=== PATIENT | female | born 1935 | race Caucasian/White ===

== ENCOUNTER → 2016-09-20 | Outpatient (CLI) | payer OTHER ==
[~2016-09-20] MED LIST: ATEN50TA8; GABA-113; MELO15TA3; SIMV40TA2; TRAM-10
[2016-09-20 14:24] LABS: BASO % 0.5 %; BASO ABS # 0.04 K/uL (0-0.2); COMPLETE YES; EOS % 4.5 %; HEMATOCRIT 40.5 % (37-47); IG% 0.3 %; LYMPH % 16.4 %; LYMPH ABS # 1.23 K/uL (1.2-3.4); MEAN CELL VOLUME 99.5 fL (80-100); MEAN CORPUSCULAR HGB CONC 31.1 g/dl (32-36); MEAN PLATELET VOLUME 11.5 fL (7.4-10.4); MONO % 9.1 %; NEUT % 69.2 %; PLATELET COUNT 225 K/uL (130-400); RED BLOOD COUNT 4.07 M/uL (4.2-5.4); WHITE BLOOD COUNT 7.48 K/uL (4.8-10.8)
[2016-09-20 14:36] LABS: ALB/GLOB RATIO 0.8 (0.9-2); ALKALINE PHOSPHATASE 102 U/L (45-117); ALT/SGPT 20 U/L (12-78); AST/SGOT 19 U/L (15-37); BLOOD UREA NITROGEN 19 mg/dl (7-18); BUN/CREATININE RATIO 17.6 (10-20); CALCIUM 8.7 mg/dl (8.5-10.1); CARBON DIOXIDE 24 mmol/L (21-32); CHLORIDE 109 mmol/L (98-107); CHOLESTEROL 136 mg/dl (0-200); CHOLESTEROL/HDL RATIO 2.9; GLUCOSE 99 mg/dl (70-99); HDL CHOLESTEROL 47 mg/dl; LDL CHOLESTEROL CALCULATED 64 mg/dl; SODIUM 144 mmol/L (136-145); TRIGLYCERIDES 127 mg/dl (0-150); VERY LOW DENSITY LIPOPROT CALC 25 mg/dl
== END | disposition home or self-care (01) ==
LOC: C.LABSPEC 13:42
PROVIDERS: ATTEND Family Medicine
DX: I10 Essential (primary) hypertension (principal); E78.2 Mixed hyperlipidemia; K21.9 Gastro-esophageal reflux disease without esophagitis

== ENCOUNTER → 2017-08-14 | Outpatient (CLI) | payer OTHER ==
[2017-08-14 18:21] LABS: BASO % 0.6 %; BASO ABS # 0.06 K/uL (0-0.2); EOS % 1.6 %; EOS ABS # 0.15 K/uL (0-0.5); HEMATOCRIT 43.6 % (37-47); HEMOGLOBIN 14.2 g/dL (12.0-16.0); IG# 0.03 K/uL (0.00-0.02); LYMPH % 17.6 %; MEAN CELL VOLUME 100.9 fL (80-100); MEAN CORPUSCULAR HEMOGLOBIN 32.9 pg (25-34); MEAN CORPUSCULAR HGB CONC 32.6 g/dl (32-36); MEAN PLATELET VOLUME 11.7 fL (7.4-10.4); MONO % 8.9 %; MONO ABS # 0.86 K/uL (0.11-0.59); NEUT ABS # 6.87 K/uL (1.4-6.5); PLATELET COUNT 292 K/uL (130-400); RED CELL DISTRIBUTION WIDTH CV 13.1 % (11.5-14.5); RED CELL DISTRIBUTION WIDTH SD 49.4 fL (36.4-46.3); WHITE BLOOD COUNT 9.67 K/uL (4.8-10.8)
[2017-08-14 18:28] LABS: ALBUMIN 3.1 gm/dl (3.4-5.0); ALT/SGPT 18 U/L (12-78); AST/SGOT 17 U/L (15-37); BLOOD UREA NITROGEN 18 mg/dl (7-18); CALCIUM 8.8 mg/dl (8.5-10.1); CARBON DIOXIDE 22 mmol/L (21-32); CREATININE 1.16 mg/dl (0.60-1.20); GLUCOSE 101 mg/dl (70-99); POTASSIUM 3.8 mmol/L (3.5-5.1); SODIUM 141 mmol/L (136-145)
[2017-08-14 18:33] LABS: INR 1.8 (0.9-1.1)
[2017-08-14 18:38] LABS: ALKALINE PHOSPHATASE 104 U/L (45-117); TOTAL PROTEIN 7.5 gm/dl (6.4-8.2)
== END | disposition home or self-care (01) ==
LOC: C.LABSPEC 17:43
PROVIDERS: ATTEND Family Medicine
DX: L65.9 Nonscarring hair loss, unspecified (principal); Z79.01 Long term (current) use of anticoagulants

== ENCOUNTER → 2017-09-05 | Outpatient (CLI) | payer OTHER | END | disposition home or self-care (01) | LOC: C.LABSPEC 17:40 | PROVIDERS: ATTEND Family Medicine | DX: L65.9 Nonscarring hair loss, unspecified (principal); I26.99 Other pulmonary embolism without acute cor pulmonale ==